=== PATIENT | female | born 1960 | race Caucasian/White ===

== ENCOUNTER 2017-04-05 18:22 | Emergency (ER) | payer BC ==
[2017-04-05 18:46] VITALS: BP 152/108
[2017-04-05] MEDS ORDERED: Oseltamivir CAP* 75 MG CAP PO ONE (19:54)
[2017-04-05] MEDS ORDERED: Ibuprofen TAB* 600 MG PO ONE (19:56)
--- NOTE | 2017-04-05 20:09 | UC ---
Jean Marie Gonzáles Stephanie, scribed for Nicholas Guillen MD on 04/05/17 at 2003 . FLU HPI - HPI Summary HPI Summary: The pt is a 57 y/o F presenting to with c/o flu symptoms that began yesterday. Symptoms include fever, nasal discharge and myalgia. The pt denies SOB, ear pain and sore throat. The pt reports that she recently had pneumonia in early March. - History of Current Complaint Chief Complaint: UCRespiratory Stated Complaint: ELEVATED TEMP Time Seen by Provider: 04/05/17 19:48 Hx Obtained From: Patient Onset/Duration: Sudden Onset, Lasting Days - 1, Still Present Severity Initially: Moderate Pain Intensity: 8 Pain Scale Used: 0-10 Numeric Associated Signs & Symptoms: Positive: Fever, Myalgia. Negative: Sore Throat - Allergy/Home Medications Allergies/Adverse Reactions: Allergies Allergy/AdvReac Type Severity Reaction Status Date / Time No Known Allergies Allergy Verified 04/05/17 18:48 Home Medications: Home Medications Acetaminophen TAB* [Tylenol TAB*] 325 mg PO Q4H PRN 04/05/17 [History Confirmed 04/05/17] Losartan Potassium [Cozaar] 50 mg PO DAILY 04/05/17 [History Confirmed 04/05/17] PMH/Surg Hx/FS Hx/Imm Hx Cardiovascular History: Hypertension - Surgical History Surgical History: None - Family History Known Family History: Positive: Cardiac Disease, Hypertension - Social History Occupation: Employed Full-time Lives: Alone Alcohol Use: None Substance Use Type: None Smoking Status (MU): Never Smoked Tobacco Review of Systems Constitutional: Fever Skin: Negative Eyes: Negative ENT: Nasal Discharge Respiratory: Negative Cardiovascular: Negative Gastrointestinal: Negative Genitourinary: Negative Motor: Negative Neurovascular: Negative Musculoskeletal: Myalgia Neurological: Negative Psychological: Negative All Other Systems Reviewed And Are Negative: Yes Physical Exam Triage Information Reviewed: Yes Vital Signs: Initial Vital Signs Temp 102.4 F 04/05/17 18:41 Pulse 109 04/05/17 18:41 Resp 16 04/05/17 18:41 BP 152/108 04/05/17 18:41 Pulse Ox 95 04/05/17 18:41 Vital Signs Reviewed: Yes - Additional Comments General: mildly ill-appearing, no pain distress Skin: warm, color reflects adequate perfusion, dry Head: normal Eyes: EOMI, CHRISTIE ENT: clear rhinorrhea, mild posterior pharynx erythema Neck: supple, nontender Respiratory: CTA, breath sounds present Cardiovascular: tachycardic Abdomen: soft, nontender Bowel: present Musculoskeletal: normal, strength/ROM intact Neurological: normal, sensory/motor intact, A&O x3 Psychological: affect/mood appropriate Flu Course/Dx - Course Course Of Treatment: Medications reviewed. BP noted and advised to follow up with PCP. - Differential Dx/Diagnosis Provider Diagnoses: INFLUENZA Discharge - Discharge Plan Condition: Stable Disposition: HOME Prescriptions: Oseltamivir CAP* [Tamiflu CAP*] 75 mg PO BID #9 cap Patient Education Materials: Influenza (ED) Referrals: Gretchen Kngiht MD [Primary Care Provider] - Additional Instructions: FOLLOW UP WITH YOUR DOCTOR. RETURN TO THE EMERGENCY DEPARTMENT FOR ANY WORSENING OF YOUR CONDITION OR QUESTIONS OR CONCERNS. Your blood pressure was elevated during todays visit; please follow up with your primary care provider within a week for further evaluation. The documentation as recorded by the Jean Marie martinez Stephanie accurately reflects the service I personally performed and the decisions made by me, Nicholas Guillen MD.
== END 2017-04-05 20:08 | disposition home or self-care (01) ==
LOC: UCEAST 18:22
DX: J11.1 Influenza due to unidentified influenza virus with other respiratory manifestations (principal); R00.0 Tachycardia, unspecified; I10 Essential (primary) hypertension
CPT/HCPCS: 87502; 99202; A9270-GY; G0463